=== PATIENT | male | born 1995 | race African-American/Black ===

== ENCOUNTER 2021-10-09 22:48 | Emergency (ER) | payer MEDICAID ==
[~2021-10-09] VITALS: Ht 172.7 cm; Wt 81.0 kg
[2021-10-10] MEDS ORDERED: LORAZEPAM 0.5MG TABLET PO ONE (00:30)
[2021-10-10 04:00] VITALS: BP 130/80
== END 2021-10-10 05:31 | disposition home or self-care (01) ==
LOC: ER 22:48
DX: R00.2 Palpitations (principal)
CPT/HCPCS: 93005; 99283